=== PATIENT | female | born 1970 | race Caucasian/White ===

== ENCOUNTER → 2017-07-22 08:43 | Outpatient (CLI) | payer BC ==
[2015-03-21 10:44] VITALS: BMI 39.9
[~2017-07-22 08:43] MED LIST: CYCLOBENZAPRINE10 MG PO; CYMBALTA60 MG PO; DILAUDID2 MG PO; ULTRAM50 MG PO
== END | disposition home or self-care (01) ==
LOC: D.MRI 08:43
DX: M25.562 Pain in left knee (principal)

== ENCOUNTER 2017-11-21 07:38 | Outpatient (CLI) | payer BC ==
[~2017-11-21] VITALS: Ht 180.3 cm; Wt 121.8 kg
--- NOTE | ~2017-11-21 | HEMODYNAMI ---
PATIENT:JUAN CHENG MEDICAL RECORD: [id number] : 66 LOCATION:[facility] ADMISSION DATE: 11/21/17 Generatedon:11/21/20179:34 Patient name: JUAN CHENG Patient #: [id number] SSN: : Date of study: 11/21/2017 Page: Of Hemodynamic Procedure Report Patient Data Patient Demographics Procedure consent was obtained First Name: JUAN Gender: Female Last Name: PROSPER : 1970 [facility] Initial: ABBY Age: 46 year(s) Patient #: [id number] Race: Unknown Additional ID: [id number] Contact details [address]: [address] [place] [address] ROAD State: [place] City: [place] Zip code: [address] Admission Admission Data Admission Date: 11/21/2017 Admission Time: 7:38 Procedure Procedure Types Cath Procedure Diagnostic Procedure LHC LHC w/Coronaries Procedure Description Procedure Date Procedure Date: 11/21/2017 Procedure Start Time: 9:24 Procedure End Time: 9:33 Procedure Staff Name Function Abdulkadir Seo MD Performing Physician Netta Alex RT Monitor Bryan Charles RT Scrub Marija Beckman RN Nurse Jose Francisco Fagan RN Nurse Procedure Data Cath Procedure Fluoroscopy Diagnostic fluoroscopy Total fluoroscopy Time: 3.7 time: 3.7 min min Diagnostic fluoroscopy Total fluoroscopy dose: 546 dose: 546 mGy mGy Contrast Material Contrast Material Type Amount (ml) Isovue 300 93 Entry Location Entry Primary Successful Side Size Upsize Upsize Entry Closure Polanco ccessful Closure Location (Fr) 1 (Fr) 2 (Fr) Remarks Device Remarks Radial Right 6 Fr Mechanical artery Short Compression Estimated blood loss: 5 ml Diagnostic catheters Device Type Used For End Catheter Placement DIAGNOSTIC Madison 110cm 5 Multi-vessel Fr catheter ([id number]) Angiography Procedure Complications No complications Procedure Medications Medication Administration Route Dosage 0.9% NaCl I.V. 100 ml/hr Oxygen etCO2 Nasal cannula 2 l/min Heparin Flush Bag added to field 2 bags (1000units/500ml NS) Lidocaine 2% added to field 20 Radial Cocktail added to field 1 syringe (Verapomil 2mg/Nitro 400mcg/Heparin 1500units) Versed I.V. 1 mg Fentanyl I.V. 50 mcg Fentanyl I.V. 50 mcg Radial Cocktail I.A. 1 syringe (Verapomil 2mg/Nitro 400mcg/Heparin 1500units) Versed I.V. 1 mg Hemodynamics Rest Heart Rate: 51 (bpm) Pressure Samples Time Site Value (mmHg) Purpose Heart Use Rate(bpm) 9:28 LV 104/10,11 Snapshot 97 Snapshots Pre Cath Intra NCS Post Cath Vital Signs Time Heart Resp SPO2 etCO2 NIBP (mmHg) Rhythm Pain Sedation Rate (ipm) (%) (mmHg) Status Level (bpm) 9:08:05 81 15 99 0 144/85(117) NSR 0 (11) 10(A) , No pain 9:12:19 74 15 98 0 138/86(112) NSR 0 (11) 10(A) , No pain 9:16:35 88 23 97 0 148/90(113) NSR 0 (11) 10(A) , No pain 9:20:51 89 39 99 37.5 145/85(115) NSR 0 (11) 10(A) , No pain 9:25:09 90 24 96 40.5 146/80(106) NSR 0 (11) 10(A) , No pain 9:29:17 100 14 93 35.2 115/75(100) NSR 0 (11) 10(A) , No pain 9:33:27 93 12 95 40.5 129/79(105) NSR 0 (11) 10(A) , No pain Medications Time Medication Route Dose Verified Delivered Reason Notes Effectiveness by by 9:19:33 0.9% NaCl I.V. 100 Jose Francisco Jose Francisco Per ml/hr Lorigan Lorigan physician RN RN 9:19:46 Oxygen etCO2 2 l/min Jose Francisco Jose Francisco Per Nasal Gracia Fagan physician cannula RN RN 9:19:58 Heparin Flush added 2 bags Jose Francisco Jose Francisco used for Bag to Lorigan Gracia procedure (1000units/500ml field RN RN NS) 9:20:08 Lidocaine 2% added 20ml Jose Francisco Jose Francisco for local to vial Lorigan Lorigan anesthetic field RN RN 9:20:19 Radial Cocktail added 1 Jose Francisco Jose Francisco used for (Verapomil to syringe Lorigan Lorigan procedure 2mg/Nitro field RN RN 400mcg/Heparin 1500units) 9:20:32 Versed I.V. 1 mg Jose Francisco Jose Francisco for sedation Gracia Fagan RN RN 9:20:40 Fentanyl I.V. 50 mcg Jose Francisco Jos Efrancisco for sedation Gracia Fagan RN RN 9:23:17 Fentanyl I.V. 50 mcg Jose Francisco Jose Francisco for sedation Gracia Fagan RN RN 9:26:17 Radial Cocktail I.A. 1 Jose Francisco Abdulkadir for (Verapomil syringe Gracia Seo MD vasodilation 2mg/Nitro RN 400mcg/Heparin 1500units) 9:28:49 Versed I.V. 1 mg Jose Francisco Jose Francisco for sedation Gracia Fagan RN lead nurse Log Time Note 8:49:19 Bryan Suit RT(R) sent for patient. Start room use. 8:49:20 Time tracking: Regular hours (M-F 7:00 - 5:00) 8:49:25 Plan of Care:Hemodynamics will remain stable., Cardiac rhythm will remain stable., Comfort level will be maintained., Respiratory function will remain adequate., Patient/ family verbilizes understanding of procedure., Procedure tolerated without complication., Recovers from procedure without complications.. 8:55:34 Patient received from Pre/Post Procedure Room to CCL 2 Alert and oriented. Tansferred to table in Supine position. 8:55:35 Warm blankets applied, and jose hugger turned on for patient comfort. 8:55:36 Correct patient and procedure confirmed by team. 8:55:37 Signed procedure consent form obtained from patient. 8:55:38 ECG and BP/O2 sat monitors applied to patient. 9:06:56 Vital chart was started 9:06:57 Baseline sample Acquired. 9:07:02 Rhythm: sinus tachycardia 9:07:03 Full Disclosure recording started 9:07:06 H&P Date Dictated: 11/21/2017 Within 30 days and on chart., H&P Addendum completed by physician on day of procedure. (MUST COMPLETE FOR ALL OUTPATIENTS). 9:07:07 Pre-procedure instructions explained to patient. 9:07:08 Pre-op teaching completed and patient verbalized understanding. 9:07:09 Family in waiting room. 9:07:10 Patient NPO since Midnight. 9:07:12 Is the patient allergic to Iodine/contrast media? Yes. 9:07:13 Was the patient premedicated? Yes 9:07:14 Is patient on blood thinner?No 9:13:31 Patient diabetic? No. 9:13:38 Previous problem with sedation/anesthesia? No ? 9:13:40 Snore? Yes 9:13:43 Sleep apnea? Unknown 9:13:44 Deviated septum? No 9:13:45 Opens mouth fully? Yes 9:13:45 Sticks out tongue? Yes 9:13:47 Airway obstruction? No ? 9:13:50 Dentures? No ? 9:13:54 Pre procedure: right dorsailis pedis pulse 2+ Normal; easily identifiable; not easily obliterated 9:13:59 Pre procedure: left dorsailis pedis pulse 2+ Normal; easily identifiable; not easily obliterated 9:14:05 Patient pain scale 0/10 ?. 9:14:11 IV patent on arrival in left forearm with 0.9% NaCl at [facility]. 9:15:04 Lab results completed and on chart. 9:15:12 Right Radial & Right Groin area was prepped with chlora-prep and draped in sterile fashion 9:15:13 Alarms reviewed by R. N. 9:15:13 Sharps counted by scrub and verified by R.N. 9:15:15 Physician arrived 9:15:15 --------ALL STOP TIME OUT------ 9:15:15 Final Timeout: patient, procedure, and site verified with staff and physician. All members of the team are in agreement. 9:15:17 Right Radial & Right Groin site verified by team. 9:15:19 Physical assessment completed. ASA score P 2 - A patient with mild systemic disease as per Abdulkadir Seo MD. 9:15:23 Sedation plan: IV Moderate Sedation Medication:Versed, Fentanyl 9:15:25 Zero performed for pressure channel P1 9:16:53 Use device set Radial Dx or PCI 9:16:54 ACIST Syringe (80895) opened to sterile field. 9:16:55 Medline Cath Pack ([id number]) opened to sterile field. 9:16:55 Bag Decanter (2002S) opened to sterile field. 9:16:55 DIAGNOSTIC WIRE .035 260cm J wire (432092) opened to sterile field. 9:16:56 ACIST Hand Control (56151) opened to sterile field. 9:16:56 ACIST Manifold (09420) opened to sterile field. 9:16:57 Tegaderm 4 x 4 (1626W) opened to sterile field. 9:16:57 MBrace Wrist Support ([id number]) opened to sterile field. 9:16:59 SHEATH 6Fr Prelude Radial ([id number]) opened to sterile field. 9:17:12 Procedure started. 9:19:33 0.9% NaCl 100 ml/hr I.V. was administered by Jose Francisco Fagan RN; Per physician; 9:19:46 Oxygen 2 l/min etCO2 Nasal cannula was administered by Jose Francisco Fagan RN; Per physician; 9:19:58 Heparin Flush Bag (1000units/500ml NS) 2 bags added to field was administered by Jose Francisco Fagan RN; used for procedure; 9:20:08 Lidocaine 2% 20ml vial added to field was administered by Jose Francisco Fagan RN; for local anesthetic; 9:20:19 Radial Cocktail (Verapomil 2mg/Nitro 400mcg/Heparin 1500units) 1 syringe added to field was administered by Jose Francisco Fagan RN; used for procedure; 9:20:32 Versed 1 mg I.V. was administered by Jose Francisco Fagan RN; for sedation; 9:20:40 Fentanyl 50 mcg I.V. was administered by Jose Francisco Fagan RN; for sedation; 9:23:17 Fentanyl 50 mcg I.V. was administered by Jose Francisco Fagan RN; for sedation; 9:24:25 Local anesthetic to right radial artery with Lidocaine 2% by Abdulkadir Seo MD.INITIAL ACCESS ONLY 9:25:05 A 6 Fr Short sheath was inserted into the Right Radial artery 9:25:28 A DIAGNOSTIC Madison 110cm 5 Fr catheter ([id number]) was advanced over the wire and used for Multi-vessel Angiography. 9:26:17 Radial Cocktail (Verapomil 2mg/Nitro 400mcg/Heparin 1500units) 1 syringe I.A. was administered by Abdulkadir Seo MD; for vasodilation; 9:28:04 LV hemodynamics recorded. 9:28:07 LV gram done using ESCALANTE 9:28:10 Injector settings: Ml/sec: 5, Volume: 15, 9:28:17 EF : 60 % 9:28:34 RCA angiography performed. 9:28:40 Injector settings: Ml/sec: 3, Volume: 6, 9:28:49 Versed 1 mg I.V. was administered by Jose Francisco Fagan RN; for sedation; 9:29:04 Catheter removed. 9:30:11 GUIDE 5FR EBU 3.0 catheter ([id number]) opened to sterile field. 9:30:35 6 Fr ebu 3 guide catheter was inserted over the wire 9:30:38 LCA angiography performed. 9:30:47 Injector settings: Ml/sec: 3, Volume: 6, 9:30:58 Catheter removed. 9:31:25 TR BAND Large ([id number]) opened to sterile field. 9:31:44 Sheath removed intact; hemostasis achieved with Mechanical Compression to the Right Radial artery. 9:31:49 Procedure ended.(Physican Out) 9:32:24 Fluoroscopy time 03.70 minutes. 9:32:28 Fluoroscopy dose: 546 mGy 9:32:28 Flurop Dose total: 546 9:32:42 Contrast amount:Isovue 300 93ml. 9:32:43 Sharps counted by scrub and verified by R.N. 9:32:45 TR band inflated with 10cc of air. 9:32:46 Insertion/operative site no bleeding no hematoma. 9:32:49 Post right radial artery:stable 9:32:50 Post Procedure Pulses reassessed and unchanged 9:32:53 Post procedure rhythm: unchanged. 9:32:55 Estimated blood loss: 5 ml 9:32:56 Post procedure instruction explained to patient.Patient verbalizes understanding. 9:32:57 Patient needs reinforcement of post procedure teaching. 9:33:08 Procedure and supply charges have been captured, reviewed, submitted and are correct. 9:33:16 Procedure Complication : No complications 9:33:18 Vital chart was stopped 9:33:19 See physician's report for complete and final results. 9:33:21 Report given to Pre/Post Procedure Room. 9:33:24 Patient transfered to Pre/Post Procedure Room with Stretcher. 9:33:26 Procedure ended. 9:33:26 Full Disclosure recording stopped 9:33:29 End room use (Document Last) Device Usage Item Name Manufacture Quantity Catalog Number Hospital Part Current M inimal Lot# / Charge Number Stock Stock Serial# Code ACIST Syringe Acist 1 79104 905809 036974 197033 2 0 (01512) [employer] Medline Cath Cardinal 1 [id number] 217990 15076 108428 5 Pack Health ([id number]) Bag Decanter Microtek 1 2001S 818868 94197 465997 5 (2001S) Medical Inc. DIAGNOSTIC WIRE St Jules 1 456926 152444 455504 802825 3 0 .035 260cm J wire (772707) ACIST Hand Acist 1 45920 482353 439336 515055 5 Control (29456) [employer] Inc ACIST Manifold Acist 1 60944 087028 655747 549885 5 (86185) Medical Systems Inc Tegaderm 4 x 4 3M 1 1626W 072749 226025 973918 5 (1626W) MBrace Wrist Advanced 1 140-0250-00 521666 31790 651417 5 Support Vascular ([id number]) Dynamics SHEATH 6Fr Merit 1 [id number] 784745 523838 612412 5 Prelude Radial Medical ([id number]) DIAGNOSTIC Terumo 1 40-2660 190696 241234 244408 5 Madison 110cm 5 Fr catheter (688158) GUIDE 5FR EBU Medtronic 1 [id number] 537836 826700 743245 1 3.0 catheter ([id number]) TR BAND Large Terumo 1 [id number] 516685 584367 101754 4 0 ([id number]) Signature Audit [place] Stage Time Signature Unsigned Intra-Procedure 11/21/2017 Netta Alex 9:34:18 AM RT(R) Signatures Monitor : Netta Alex RT Signature : Date : Time : [id number] [place] [address]
--- NOTE | ~2017-11-21 | OP ---
PATIENT NAME: JUAN CHENG MEDICAL RECORD: [id number] :66 LOCATION:[facility] ADMISSION DATE: SURGEON: ZURI LEAL MD DATE OF OPERATION: 11/21/2017 PROCEDURES: 1. Left heart catheterization. 2. Selective coronary angiography. 3. Left ventriculogram. INDICATION: Chest pain compatible with angina. PROCEDURE IN DETAIL: After informed consent was obtained and after detailed explanation of risks, benefits as well as alternative therapies, the patient elected to proceed with angiogram and heart catheterization. The right radial area was prepped and draped in normal sterile fashion. Right radial artery was cannulated via modified Seldinger technique with placement of 6-Gabonese sheath. All catheters exchanged through this sheath. FINDINGS: The left ventriculogram was performed in standard 30-degree ESCALANTE view, reveals good cardiac wall motion throughout all segments. Overall ejection fraction estimated at 60%. SELECTIVE CORONARY ANGIOGRAPHY: Left main, left anterior descending, left circumflex, right coronary artery are all smooth-walled vessel with no angiographic evidence of coronary artery disease. OVERALL IMPRESSION: 1. No angiographic evidence of coronary artery disease. 2. Normal left heart pressures. 3. Normal left ventricular systolic function. Chest pain is noncardiac. No further cardiac workup needs to be ascertained. TRANSINT:[id number] Voice Confirmation ID: [id number] DOCUMENT ID: [id number] ZURI LEAL MD at 1950 CC: [id number] DICTATION DATE: 11/21/17 0935 RN MATERNITY: 11/21/17 1040 DEP CLI 11/21/17 [place] [id number] [place] [id number]
[2017-11-21 08:01] VITALS: BP 117/80; Ht 180.3 cm; Wt 121.8 kg
[2017-11-21 08:40] LABS: HEMOGLOBIN 14.5 g/dL (12-16); LYMPHOCYTES 11.1 % (15-50); MCH 29.9 pg (26.0-34.0); MCHC 33.7 g/dL (31.0-37.0); MCV 88.7 fL (80.0-100.0); MEAN PLATELET VOLUME 10.3 fL (7.4-10.4); NEUTROPHILS 87.6 % (40-80); RBC 4.85 10x6/uL (4.00-5.40); RDW 12.9 % (11.5-14.5); WBC 6.5 10x3/uL (4.8-10.8)
[2017-11-21 08:41] LABS: PLATELET COUNT 250 10x3/uL (130-400)
[2017-11-21 09:20] LABS: ANION GAP 11.5 mmol/L (8-16); CALCIUM 8.7 mg/dL (8.5-10.1); CARBON DIOXIDE 23.7 mmol/L (21.0-32.0); CREATININE - SERUM 0.9 mg/dL (0.6-1.3); POTASSIUM - SERUM 4.2 mmol/L (3.5-5.1)
== END 2017-11-21 11:35 | disposition home or self-care (01) ==
LOC: D.CATH 07:38
PROVIDERS: Internal Medicine Interventional Cardiology
DX: R07.89 Other chest pain (principal); Z01.812 Encounter for preprocedural laboratory examination